=== PATIENT | female | born 1990 | race Two or more races ===

== ENCOUNTER 2019-07-01 13:33 | Emergency (ER) | payer OTHER ==
[~2019-07-01] VITALS: Ht 152.4 cm; Wt 90.7 kg
[2019-07-01] MEDS ORDERED: ENDOMETRIN100 MG (14:12)
[2019-07-01] MEDS ORDERED: PRENA1 TRUE CO1 EACH (14:12)
== END 2019-07-01 20:35 | disposition home or self-care (01) ==
LOC: ER 13:33 → EDBD 13:46 → ER 13:46
DX: O20.8 Other hemorrhage in early pregnancy (principal); Z34.81 Encounter for supervision of other normal pregnancy, first trimester

== ENCOUNTER 2019-07-26 12:14 | Emergency (ER) | payer OTHER ==
[~2019-07-26] VITALS: Ht 152.4 cm; Wt 95.3 kg
[~2019-07-26 12:14] MED LIST: ENDOMETRIN100 MG; PRENA1 TRUE CO1 EACH
== END 2019-07-26 18:51 | disposition home or self-care (01) ==
LOC: ER 12:14
DX: O26.891 Other specified pregnancy related conditions, first trimester (principal); R10.2 Pelvic and perineal pain; O21.0 Mild hyperemesis gravidarum; Z34.01 Encounter for supervision of normal first pregnancy, first trimester

== ENCOUNTER 2019-10-10 11:55 | Inpatient (IN) | payer OTHER ==
[~2019-10-10] VITALS: Ht 152.4 cm; Wt 96.2 kg
[2019-10-10] MEDS ORDERED: MAGNESIUM400 M1 PO (13:35)
== END 2019-10-12 14:29 | disposition home or self-care (01) | DRG 817 ==
LOC: LDR 11:55
PROVIDERS: ADMIT Obstetrics & Gynecology
PROC: 0UVC7ZZ Restriction of Cervix, Via Natural or Artificial Opening (ICD-10-PCS; principal; 2019-10-10)
DX: O65.5 Obstructed labor due to abnormality of maternal pelvic organs (principal); O34.32 Maternal care for cervical incompetence, second trimester